=== PATIENT | male | born 1995 | race Caucasian/White ===

== ENCOUNTER 2017-09-19 12:44 | Emergency (ER) | payer BC ==
[2017-09-19] MEDS ORDERED: Ketorolac 60 MG/2 ML SDV IM ONE (13:23)
--- NOTE | 2017-09-19 13:26 | EDM.PDOC ---
ED HPI GENERAL MEDICAL PROBLEM - General Chief Complaint: Back Pain or Injury Stated Complaint: LOWER BACK PAIN Time Seen by Provider: 09/19/17 13:15 Source of Information: Reports: Patient History Limitations: Reports: No Limitations - History of Present Illness INITIAL COMMENTS - FREE TEXT/NARRATIVE: HISTORY AND PHYSICAL: History of present illness: [Patient comes to the emergency room complaining of back pain. Just prior to arrival in the ER he slipped on some ice and fell, landing on uneven concrete. He is now complaining of pain to his mid back and low back. He did not take any medications prior to coming to the ER for evaluation. He has not had any numbness or tingling. He's been able to move all of his extremities. Denies hitting his head and does not have any loss of consciousness. She remembers all of the events surrounding his fall.] Review of systems: As per history of present illness and below otherwise all systems reviewed and negative. Past medical history: As per history of present illness and as reviewed below otherwise noncontributory. Surgical history: As per history of present illness and as reviewed below otherwise noncontributory. Social history: No reported history of drug or alcohol abuse. Family history: As per history of present illness and as reviewed below otherwise noncontributory. Physical exam: HEENT: Atraumatic, normocephalic. No scalp tenderness with palpation. Lungs: Clear to auscultation, breath sounds equal bilaterally. Heart: S1S2, regular rate and rhythm. Abdomen: Soft, nondistended, nontender. Back: Normal in appearance no erythema or ecchymosis. He is tender over the soft tissue of his thoracic and lumbar spines but there is no spinal tenderness with palpation. No misalignment or step-offs noted. Pelvis: Stable nontender. Genitourinary: Deferred. Rectal: Deferred. Extremities: Atraumatic, negative for cords or calf pain. Neurovascular unremarkable. Patellar reflexes are 2+ and equal bilat. Neuro: Awake, alert, oriented. Motor and sensory unremarkable throughout. Exam nonfocal. Therapeutics: [Toradol 60mg IM] Impression: [Back pain] Plan: [Cussed with patient that due to the findings of this exam will treat as less regular pain and spasm. Recommend heat alternating with ice, Tylenol alternating with ibuprofen. Follow-up with PCP. Strict return precautions reviewed with the patient.] Definitive disposition and diagnosis as appropriate pending reevaluation and review of above. Lower Back Pain Score (Numeric/FACES): 7 - Related Data Allergies Allergy/AdvReac Type Severity Reaction Status Date / Time clarithromycin [From Biaxin] Allergy Nausea and Verified 09/19/17 13:26 Vomiting Home Meds: Home Meds . [No Known Home Meds] 06/09/14 [History] Social & Family History - Tobacco Use Smoking Status *Q: Never Smoker Second Hand Smoke Exposure: No - Alcohol Use Days Per Week of Alcohol Use: 0 - Recreational Drug Use Recreational Drug Use: No ED ROS GENERAL - Review of Systems Review Of Systems: ROS reveals no pertinent complaints other than HPI. ED EXAM,LOWER BACK PAIN/INJURY - Physical Exam Exam: See Below Course - Vital Signs Last Recorded V/S: Last Vital Signs Temp Pulse Resp BP 142/79 H 09/19/17 13:22 Pulse Ox 97 09/19/17 13:26 - Orders/Labs/Meds Meds: Medications Discontinued Medications Generic Name Dose Route Start Last Admin Trade Name Jessica PRN Reason Stop Dose Admin Ketorolac Tromethamine 60 mg 09/19/17 13:23 09/19/17 13:34 Toradol IM 09/19/17 13:24 60 mg ONETIME ONE Administration Departure - Departure Time of Disposition: 13:30 Disposition: Home, Self-Care 01 Condition: Good Clinical Impression: Low back pain - Discharge Information Instructions: Back Pain, Adult, [id number] Referrals: Meredith Veliz COLLATOR OPERATOR [Primary Care Provider] - Forms: ED Department Discharge Additional Instructions: The following information is given to patients seen in the emergency department who are being discharged to home. This information is to outline your options for follow-up care. We provide all patients seen in our emergency department with a follow-up referral. The need for follow-up, as well as the timing and circumstances, are variable depending upon the specifics of your emergency department visit. If you don't have a primary care physician on staff, we will provide you with a referral. We always advise you to contact your personal physician following an emergency department visit to inform them of the circumstance of the visit and for follow-up with them and/or the need for any referrals to a consulting specialist. The emergency department will also refer you to a specialist when appropriate. This referral assures that you have the opportunity for follow-up care with a specialist. All of these measure are taken in an effort to provide you with optimal care, which includes your follow-up. Under all circumstances we always encourage you to contact your private physician who remains a resource for coordinating your care. When calling for follow-up care, please make the office aware that this follow-up is from your recent emergency room visit. If for any reason you are refused follow-up, please contact the [facility] emergency department at and asked to speak to the emergency department charge nurse. [facility] [address] [place] [id number] Follow up with your primary care provider at the clinic listed above in 48-72 hours. Alternate Tylenol with ibuprofen as needed for discomfort. It may also be helpful to alternate heat and ice. Perform Gentle stretching, and go about your normal activities. Return to ER as needed as discussed.
== END 2017-09-19 14:01 | disposition home or self-care (01) ==
LOC: MW.ED 12:44
DX: M54.5 Low back pain (principal); Z88.1 Allergy status to other antibiotic agents
CPT/HCPCS: 96372; 99283; J1885